=== PATIENT | female | born 1950 | race Hispanic/Latino ===

== ENCOUNTER → 2018-11-09 | Day surgery (SDC) | payer MEDICARE ==
[2018-11-05 11:16] LABS: BASOPHILS % 0.6 % (0.0-1.0); EOSINOPHILS # (AUTO) 0.1 (0.0-0.4); EOSINOPHILS % 1.4 % (0.0-6.0); HEMATOCRIT 40.6 % (34.2-44.1); LYMPHOCYTES # (AUTO) 2.9 (1.0-3.2); MEAN CORPUSCULAR HEMOGLOBIN 28.3 pg (28-32); MEAN CORPUSCULAR VOLUME 88.3 fL (81-99); MONOCYTES # (AUTO) 0.7 (0.2-0.8); MONOCYTES % 10.4 % (4.4-11.3); NEUTROPHILS # (AUTO) 2.7 (2.1-6.9); NEUTROPHILS % 42.3 % (38.7-80.0); PLATELET COUNT 204 x10e3/uL (140-360); RED CELL DISTRIBUTION WIDTH 13.8 % (11.7-14.4)
[~2018-11-09] MED LIST: ATORVASTATIN CA20 MG PO; FENTANYL CITRATE/PF 100MCG/2 ML INJ ONE; FUROSEMIDE40 MG PO; HYOSCYAMINE 0.125 MG TAB ONE; LIDOCAINE HCL 2% LOCAL INJ 5 ML SDV VIAL INJ ONE; LISINOPRIL10 MG PO; MIDAZOLAM HCL 2 MG/2 ML VIAL ONE; NORCO 10-325 T1 EACH PO; PROPOFOL IV EMULSION 10 MG/ML 50 ML VIAL ONE
--- OUTSIDE RECORDS SUMMARY | 2018-11-09 10:43 | XMS REPORT ---
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 Allergies, Adverse Reactions, Alerts Allergy Name Allergy Type Status Severity Reaction(s) Onset Date Inactive Date Treating Clinician Comments No Known Allergies DA Active U 2014-01-24 00:00:00 Medications This patient has no known medications.
[2018-11-09 16:15] VITALS: BP 143/71
--- NOTE | 2018-11-09 18:19 | Operative Report ---
DATE OF PROCEDURE: 11/09/2018 SURGEON: Kodak Bello MD PROCEDURE: Colonoscopy and polypectomy. INDICATIONS FOR COLONOSCOPY: Colorectal cancer screening. MEDICATIONS: The patient was done under MAC, please see anesthesiologist's note. PROCEDURE IN DETAIL: With the patient in left lateral decubitus position, a flexible fiberoptic Olympus colonoscope was inserted into the rectum with ease and advanced all the way to the cecum. Mucosa overlying the cecum appeared to be within normal limits. A minute polyp was removed per the cold biopsy forceps. Diverticular disease was noted to involve the ascending colon. One polyp was snared. One polyp was removed per the cold biopsy forceps from the ascending colon. Transverse appeared to be within normal limits. One polyp was removed per the cold biopsy forceps in the descending colon. The sigmoid and the rectum appeared to be grossly within normal limits. The scope was then retroflexed into the distal rectum and small internal hemorrhoids were noted, none of which was actively bleeding. The scope was then straightened out, it was subsequently withdrawn. The patient tolerated the procedure well. IMPRESSION: 1. Cecal polyp removed per cold biopsy forceps. 2. Diverticulosis, ascending colon. 3. Ascending colon polyps x2, one snared and one removed per the cold biopsy forceps. 4. Descending colon polyp removed with cold biopsy forceps. 5. Internal hemorrhoids, none actively bleeding. PLAN: Follow up histology. Initiate high-fiber, low-fat diet. Initiate high-fiber supplement. The patient might benefit from a followup colonoscopy in 5 years. Kodak Bello MD [facility] [place] /[id number] cc: Anibal Davies MD
== END | disposition home or self-care (01) ==
LOC: OR 10:37
PROVIDERS: ATTEND Internal Medicine Gastroenterology
DX: K59.00 Constipation, unspecified (principal); D12.0 Benign neoplasm of cecum; D12.2 Benign neoplasm of ascending colon; K57.30 Diverticulosis of large intestine without perforation or abscess without bleeding; K64.8 Other hemorrhoids; I25.10 Atherosclerotic heart disease of native coronary artery without angina pectoris; I49.1 Atrial premature depolarization; I10 Essential (primary) hypertension; E78.5 Hyperlipidemia, unspecified; Z01.810 Encounter for preprocedural cardiovascular examination; Z01.812 Encounter for preprocedural laboratory examination; Z87.891 Personal history of nicotine dependence; Z95.5 Presence of coronary angioplasty implant and graft
CPT/HCPCS: 36415; 45380; 45385; 85025; 88305; 93005; J2001; J2250; J2704; J3010; 45378; 45384